=== PATIENT | female | born 1965 | race Two or more races ===

== ENCOUNTER → 2017-09-07 | Emergency (ER) | payer OTHER ==
[~2017-09-07] VITALS: Ht 162.6 cm; Wt 84.4 kg
[~2017-09-07] MED LIST: CARDIZEM30 MG; COZAAR100 MG; CYCLOBENZAPRINE10 MG; IMODIUM A-D2 MG PO; INDOCIN25 MG; KETO10TA2 PO; LOSARTAN-HCTZ1 EAC1; NIFEDIAC CC30 MG PO; ORPH100T PO; VASOTEC10 MG
== END | disposition home or self-care (01) ==
LOC: ER 18:37
DX: S83.8X2A Sprain of other specified parts of left knee, initial encounter (principal); X50.9XXA Other and unspecified overexertion or strenuous movements or postures, initial encounter; Y93.89 Activity, other specified; Y92.098 Other place in other non-institutional residence as the place of occurrence of the external cause; Y99.8 Other external cause status

== ENCOUNTER → 2017-10-01 | Emergency (ER) | payer OTHER ==
[~2017-10-01] VITALS: Ht 162.6 cm; Wt 83.0 kg
[~2017-10-01] MED LIST changes: +AIRBORNE EFFER1 EACH PO; +OSEL75CA PO; +TESSALON PERLE100 MG PO
== END | disposition home or self-care (01) ==
LOC: ER 02:37
DX: J11.1 Influenza due to unidentified influenza virus with other respiratory manifestations (principal)

== ENCOUNTER → 2017-10-03 | Emergency (ER) | payer OTHER ==
[~2017-10-03] VITALS: Ht 162.6 cm; Wt 82.6 kg
== END | disposition home or self-care (01) ==
LOC: ER 16:09
DX: R09.81 Nasal congestion (principal)

== ENCOUNTER 2019-04-12 10:18 | Emergency (ER) | payer OTHER ==
[~2019-04-12] VITALS: Ht 152.4 cm; Wt 72.6 kg
== END 2019-04-12 14:04 | disposition home or self-care (01) ==
LOC: ER 10:18
DX: R42 Dizziness and giddiness (principal)

== ENCOUNTER 2019-06-18 08:01 | Emergency (ER) | payer OTHER ==
[~2019-06-18] VITALS: Ht 162.6 cm; Wt 85.3 kg
[2019-06-18] MEDS ORDERED: MICROZIDE12.5 MG (08:18)
[2019-06-18] MEDS ORDERED: COZAAR100 MG (08:18)
[2019-06-18] MEDS ORDERED: CARDIZEM30 MG (08:18)
== END 2019-06-18 10:13 | disposition home or self-care (01) ==
LOC: ER 08:01
DX: H66.91 Otitis media, unspecified, right ear (principal); H93.11 Tinnitus, right ear

== ENCOUNTER 2019-07-25 20:25 | Emergency (ER) | payer OTHER ==
[~2019-07-25] VITALS: Ht 162.6 cm; Wt 84.4 kg
[~2019-07-25 20:25] MED LIST changes: +MICROZIDE12.5 MG
== END 2019-07-26 02:09 | disposition home or self-care (01) ==
LOC: ER 20:25
DX: R42 Dizziness and giddiness (principal); E87.6 Hypokalemia

== ENCOUNTER 2019-09-26 05:48 | Emergency (ER) | payer OTHER ==
[~2019-09-26] VITALS: Ht 162.6 cm; Wt 93.0 kg
== END 2019-09-26 12:11 | disposition home or self-care (01) ==
LOC: ER 05:48
DX: S80.02XD Contusion of left knee, subsequent encounter (principal)

== ENCOUNTER 2022-12-26 15:44 | Emergency (ER) | payer OTHER ==
[~2022-12-26] VITALS: Ht 162.6 cm; Wt 78.5 kg
[2022-12-26] MEDS ORDERED: LIPITOR40 M1 PO (16:25)
== END 2022-12-26 21:09 | disposition home or self-care (01) ==
LOC: ER 15:44
DX: L02.92 Furuncle, unspecified (principal)

== ENCOUNTER 2025-05-04 10:26 | Emergency (ER) | payer OTHER ==
[~2025-05-04] VITALS: Ht 162.6 cm; Wt 73.5 kg
[~2025-05-04 10:26] MED LIST changes: +LIPITOR40 M1 PO
[2025-05-04] MEDS ORDERED: ORPHENADRINE CITRATE 30 MG/ML AMPUL IM ONE (11:15)
[2025-05-04] MEDS ORDERED: KETOROLAC TROMETHAMINE 60 MG VIAL IM ONE (11:15)
== END 2025-05-04 12:24 | disposition home or self-care (01) ==
LOC: ER 10:26
DX: M25.512 Pain in left shoulder (principal); I10 Essential (primary) hypertension

== ENCOUNTER 2025-05-07 09:12 | Outpatient (CLI) | payer OTHER | END 2025-05-07 09:18 | disposition home or self-care (01) | LOC: RAD 09:12 | PROVIDERS: ATTEND Physical Medicine & Rehabilitation | DX: M25.512 Pain in left shoulder (principal); M54.2 Cervicalgia ==